=== PATIENT | male | born 1965 | race Caucasian/White ===

== ENCOUNTER 2019-07-14 11:17 | Emergency (ER) | payer MEDICAID, OTHER ==
[~2019-07-14] VITALS: Ht 180.3 cm; Wt 72.7 kg
[2019-07-14] MEDS ORDERED: KETOROLAC 60 MG/2 ML VIAL (J1885) IM ONE (12:00)
[2019-07-14] MEDS ORDERED: CYCLOBENZAPRINE 10 MG TAB PO ONE (12:00)
[2019-07-14] MEDS ORDERED: predniSONE 20 MG TAB PO ONE (12:00)
[2019-07-14] MEDS ORDERED: CYCL10TA PO (12:39)
[2019-07-14] MEDS ORDERED: NAPR-837 PO (12:39)
[2019-07-14 12:47] VITALS: BP 122/88
== END 2019-07-14 12:50 | disposition home or self-care (01) ==
LOC: M ED 11:17
DX: M54.16 Radiculopathy, lumbar region (principal); F17.200 Nicotine dependence, unspecified, uncomplicated; F12.10 Cannabis abuse, uncomplicated; F10.10 Alcohol abuse, uncomplicated; Z88.0 Allergy status to penicillin
CPT/HCPCS: 96372; 99283; J1885